=== PATIENT | female | born 1990 | race African-American/Black ===

== ENCOUNTER 2021-05-06 22:36 | Emergency (ER) | payer OTHER ==
[~2021-05-06] VITALS: Ht 162.6 cm; Wt 72.6 kg
[2021-05-06] MEDS ORDERED: VIGAMOX3 M1 LT. EYE (23:43)
[2021-05-07 00:26] VITALS: BP 127/81
== END 2021-05-07 00:26 ==
LOC: ER 22:36
DX: H10.32 Unspecified acute conjunctivitis, left eye (principal)